=== PATIENT | female | born 1955 | race Caucasian/White ===

== ENCOUNTER 2024-01-11 17:31 | Emergency (ER) | payer MEDICARE, OTHER ==
[2024-01-11] MEDS ORDERED: Acetaminophen/HYDROcodone 325-5 MG Tab ONE (18:15)
[2024-01-11] MEDS: Ketorolac 30 MG/ML SDV IM ONE (18:19)
[2024-01-11] MEDS: Orphenadrine 60 MG/2 ML Inj IM ONE (18:21)
== END 2024-01-11 18:29 | disposition home or self-care (01) ==
LOC: LB.ED 17:31
DX: S39.012A Strain of muscle, fascia and tendon of lower back, initial encounter (principal); I10 Essential (primary) hypertension; E78.00 Pure hypercholesterolemia, unspecified; M19.90 Unspecified osteoarthritis, unspecified site; Z79.899 Other long term (current) drug therapy; Z79.82 Long term (current) use of aspirin; X50.9XXA Other and unspecified overexertion or strenuous movements or postures, initial encounter
CPT/HCPCS: 96372; 99283; J1885; J2360; A9270-GY